=== PATIENT | female | born 1930 | race Caucasian/White ===

== ENCOUNTER 2018-02-01 17:39 | Inpatient (IN) | payer MEDICARE, MEDICAID ==
[2018-02-01 18:53] LABS: Troponin I 0.029 ng/mL (< 0.028)
[2018-02-01 20:58] LABS: Bilirubin Moderate (Negative); Blood, Urine Negative (Negative); Clarity CLEAR (Clear); Glucose, Urine (Dipstick) Negative (Negative); Leukocyte Trace (Negative); Nitrite Negative (Negative); Protein, Urine (Dipstick) 30 mg/dL (Neg-Trace); Specific Gravity, Urine 1.026 (1.002-1.036)
[2018-02-01 21:00] LABS: Bacteria/HPF None Seen HPF (None Seen); Hyaline Casts/LPF 7-10 HYALINE CAST LPF (0-3 Hyaline)
[2018-02-01] MEDS ORDERED: Acetaminophen 325 MG TAB PO PRN (21:03)
[2018-02-01] MEDS ORDERED: Ondansetron HCl/PF 4 MG/2 ML Vial IVP PRN (21:03)
[2018-02-01] MEDS ORDERED: Levothyroxine Sodium 100 MCG TAB PO SCH (22:00)
[2018-02-01 22:07] LABS: Troponin I 0.032 ng/mL (< 0.028)
[2018-02-02] MEDS: Sodium Chloride 0.9% 1,000 ML IV SCH ×2 (00:17→00:39)
[2018-02-02 01:07] LABS: Troponin I 0.032 ng/mL (< 0.028)
[2018-02-02 05:28] LABS: Anion Gap 13 mmol/L (10-20); BUN (Urea Nitrogen) 24 mg/dL (9.8-20.1); Calc. Creatinine Clearance 31 mL/min (70-130); Carbon Dioxide 24 mmol/L (23-31); Chloride 106 mmol/L (98-107); Estimated GFR-MDRD 42; Potassium 3.1 mmol/L (3.5-5.1); Sodium 140 mmol/L (136-145)
[2018-02-02 05:29] LABS: Calcium 9.2 mg/dL (7.8-10.44); Glucose 69 mg/dL (83-110)
[2018-02-02 05:50] LABS: Band 3 % (5-11); Eosinophils 1 % (0-10); Hemoglobin 11.5 g/dL (12.0-16.0); Lymphocytes 54 % (21-51); MDiff Complete? YES; Mean Corpuscular HGB CONC 34.2 g/dL (32.0-36.0); Mean Corpuscular Hemoglobin 31.1 pg (27.0-31.0); Mean Platelet Volume 7.9 fL (7.4-10.4); Monocytes 3 % (0-10); Neutrophil 37 % (42-75); Platelet Count 153 thou/uL (130-400); RBC Distribution Width 13.5 % (11.5-14.5); Reactive Lymphocytes 2 % (0-10); Red Blood Cell (RBC) Count 3.68 mill/uL (4.20-5.40); White Blood Cell (WBC) Count 4.6 thou/uL (4.8-10.8)
[2018-02-02] MEDS ORDERED: Levothyroxine 150 MCG TAB PO SCH ×2 (06:00→07:13)
[2018-02-02 06:02] VITALS: BMI 20.2
[2018-02-02] MEDS ORDERED: Nitroglycerin 0.4 MG TAB (25 Tab Bottle) SL PRN (07:12)
[2018-02-02] MEDS ORDERED: Eucerin (Mineral Oil/Petrolatum,White) 30 gm Jar TOP PRN (07:12)
[2018-02-02] MEDS ORDERED: hydrALAZINE 20 MG/ML VIAL SLOW IVP PRN (07:12)
[2018-02-02] MEDS ORDERED: Bisacodyl 10 MG SUPP PR PRN (07:12)
[2018-02-02] MEDS ORDERED: Senokot 8.6 MG TAB PO PRN (07:12)
[2018-02-02] MEDS ORDERED: Milk Of Magnesia 30 ML UDCUP PO PRN (07:12)
[2018-02-02] MEDS ORDERED: Chloraseptic Spray 180 ml Bottle PO PRN (07:12)
[2018-02-02] MEDS ORDERED: Loperamide HCl 2 MG CAP PO PRN (07:12)
[2018-02-02] MEDS ORDERED: Loratadine 10 MG TAB PO PRN (07:12)
[2018-02-02] MEDS ORDERED: Artificial Tears 18 DROP/0.9 ML EA EYE PRN (07:12)
[2018-02-02] MEDS ORDERED: Famotidine 20 MG TAB PO PRN ×2 (07:12→12:45)
[2018-02-02] MEDS ORDERED: Diabetic Tussin 200 MG/10 ML UDCUP PO PRN (07:12)
[2018-02-02] MEDS ORDERED: Sodium Chloride 0.65% Nasal 44 ML BOT EA NARE PRN (07:12)
[2018-02-02] MEDS ORDERED: Calcium Carbonate 500 MG ChewTAB PO PRN (07:12)
[2018-02-02] MEDS ORDERED: Ondansetron ODT 4 MG TAB PO PRN (07:12)
--- NOTE | 2018-02-02 07:35 | HP ---
PRIMARY CARE PHYSICIAN: Lana Fierro M.D. CODE STATUS: FULL CODE. TIME OF EVALUATION: 8:00 p.m. CHIEF COMPLAINT: Altered mental status. HISTORY OF PRESENT ILLNESS: This is an 87 years old female patient with past medical history of ilda ntia, brought to the hospital by friends because the patient was found to have change in mental statu s, the patient had been confused, the friend that is with the patient reported the patient does not h ave family members and she lives alone, and that she has been confused in the past few days, the [facility] has a visiting nurse and there was some issue that the patient was calling 911, reporting that th e visiting nurse was trying to kill her and still her things at home, so seems that the nursing group decided not to visit the patient anymore since then, the patient has been alone. The patient is con fused during the interview. Unable to give full history; however, she is in no distress, asymptomati c. No clear triggers. No alleviating factors. The patient was also reportedly having some episodes of bradycardia during my examination, heart rate was 40s and 50s. Unclear if the patient is taking her medications in the right way. REVIEW OF SYSTEMS: Unable to obtain as the patient is noncooperative to our interview. PAST MEDICAL HISTORY: CHF, lower abdomen aneurysm, COPD, coronary artery disease, hyperlipidemia, hi gh cholesterol, hypothyroidism. PAST SURGICAL HISTORY: The patient reported having CABG of 3 vessels. PSYCHIATRIC HISTORY: No previous psychiatric history. SOCIAL HISTORY: No drug use, quit smoking more than 10 years ago. KNOWN ALLERGIES: CODEINE SULFATE. REPORTED MEDICATIONS: The patient takes Bystolic and levothyroxine. PHYSICAL EXAMINATION: VITAL SIGNS: On presentation, blood pressure 161/73 with heart rate 49, respiratory rate was 19, tem perature 97.7, oxygen saturation 93 on room air. GENERAL APPEARANCE: The patient is alert, disoriented, not in any acute distress. HEENT: Eyes: Normal conjunctivae. Moist oral mucosa. Anicteric. NECK: No JVD. RESPIRATORY: Bilateral air entry. No rales, no wheezing. Symmetric expansion. CARDIOVASCULAR: Bradycardia, regular rhythm. No murmurs, no gallop, no edema. ABDOMEN: Soft, normal bowel sounds. MUSCULOSKELETAL: Baseline range of motion and strength. No tenderness. SKIN: Warm and intact. No pallor, no rash. Peripheral pulses are present. Capillary refill seems to be intact. NEUROLOGIC: The patient is disoriented. No evidence of any new focal weakness. Baseline speech. C ranial nerves seem to be intact. PSYCHIATRIC: The patient is disoriented. No changes in mood. EKG was reviewed. The patient had sinus bradycardia with rate of 49 with ID [id number], QRS 98, QT correcte d 451. Chest x-ray not done. LABORATORY DATA: White count 5.2, hemoglobin 11.7, MCV 89.3, platelet count 148. Chemistry: Sodium 142, potassium 3.5, chloride 105, carbon dioxide 24, anion gap 17, BUN 29, creatinine 1.81 and previ ous admission was for 1.55, glucose 176, total bilirubin 1.3. Beta natriuretic peptide 202. Troponi n 0.032 the first one was about the same level. ASSESSMENT AND PLAN: The patient will be placed in the hospital with following medical problems. 1. patient is alone, who seems to have dementia, unable to know the patient has been taking me dications or taking overdose of medications, patient presented with bradycardia, was taken Bystolic, will need piano case maker involvement to assist the patient for discharge planning, and further evaluati on of safety at home. 2. Sinus bradycardia, unclear etiology, could be related to the patient taking Bystolic, is no t clear at this point. 3. Mildly elevated troponin range of 0.032. Unclear etiology, the patient has also chronic kidney d isease, could be related to it. We will consult Cardiology for further workup and planning. 4. Hypothyroidism. TSH 68, this could be another reason, noncompliant due to possible patient's und erlying dementia, we will restart levothyroxine. 5. History of congestive heart failure, this is chronic, seems to stable, we will monitor, we will t reat accordingly. No home medication list yet. 6. Hyperlipidemia, low cholesterol diet is advised, reconcile home medications once available. 7. Deep venous thrombosis prophylaxis.
[2018-02-02] MEDS ORDERED: Prevnar 13-Val Conj/PF 0.5 ML SYRINGE IM ONE (09:00)
[2018-02-02 09:37] LABS: Cardiac Risk 5.7 (Less than 4.5)
[2018-02-02 09:57] LABS: Free T4 (Free Thyroxine) 0.75 ng/dL (0.70-1.48)
[2018-02-02 10:12] LABS: Folate (Folic Acid) 7.7 ng/mL (7.0-31.4)
[2018-02-02] MEDS: NS 0.9% w/ 20 MEQ KCL 1,000 ML/1,000 ML BAG IV SCH ×3 (10:13→20:46)
[2018-02-02] MEDS: Potassium Chloride 20 MEQ TAB PO SCH ×2 (10:14→17:21)
[2018-02-02] MEDS: Aspirin 325 MG TAB PO SCH ×2 (10:14→17:20)
[2018-02-02] MEDS: Enoxaparin Sodium 40 MG/0.4 ML SYRINGE SC SCH ×2 (10:14→17:21)
[2018-02-02] MEDS: cefTRIAXone\\ROCEPHIN 1 GM in Sodium Chloride 0.9% 100 ML IVPB SCH ×2 (10:14→17:19)
--- NOTE | 2018-02-02 10:50 | CON ---
DATE OF CONSULTATION: 02/02/2018 REASON FOR CONSULTATION: Bradycardia. HISTORY OF PRESENT ILLNESS: Ms. Gale is an 87-year-old woman, who was brought to the emergency ro om with confusion, disorientation, and also found to be bradycardic. The patient does not have chest pain or pressure now, but does have some confusion. The chart states there is a visiting nurse came to try to visit her, but the patient called 911, but the nurse was trying to kill her. The patient was confused and disoriented. REVIEW OF SYSTEMS: Not reliable, the patient is confused. PAST MEDICAL HISTORY: COPD, coronary artery disease, hypercholesterolemia, and hypothyroidism. PAST SURGICAL HISTORY: Previous bypass surgery. PSYCHIATRIC HISTORY: Dementia. SOCIAL HISTORY: No drugs. Quit smoking over 10 years ago. ALLERGIES: CODEINE and SULFATE. MEDICATION: 1. Bystolic 2.5 mg a day. 2. Lisinopril/hydrochlorothiazide 20/25 3. Tirosint thyroid. 4. Aspirin 81 mg a day. 5. Amlodipine 10 mg a day. It is unknown whether she is taking these medicines at home, she refuses medicines here. 6. History of statin intolerance. 7. Intolerant to Zetia as well. PHYSICAL EXAMINATION: GENERAL: On examination, it is a pleasant elderly woman who is awake. She answers questions, but st ates she wants to . She has no chest pain or pressure. VITAL SIGNS: Blood pressure 140/80, pulse 50, it is sinus on the monitor. HEENT: Eyes: Sclerae nonicteric. Mouth, mucous membranes moist. NECK: Supple, no lymphadenopathy. LUNGS: Clear, no wheezing. CARDIAC: She is bradycardic. I do not hear a murmur, rub, or gallop. ABDOMEN: Soft, nontender. EXTREMITIES: Warm and dry. No clubbing, cyanosis, or edema. PERTINENT LABORATORY FINDINGS: The EKG shows sinus bradycardia. The potassium is 3.1. Cholesterol is 328, triglyceride 166. LDL cholesterol is 237. TSH 68.67. ASSESSMENT: 1. Confusion and disorientation. Suspect related to hypothyroidism with some underlying dementia. 2. Refusing all medicines. 3. Some paranoid ideation. 4. Sinus bradycardia, likely at least largely related to hypothyroidism. 5. Previous bypass surgery. 6. Hypercholesterolemia with statin intolerance. PLAN: 1. If possible, we will give her thyroid ? intravenous if she will not take oral. 2. She is off all beta blockers. 3. No other recommendations at this point.
--- NOTE | 2018-02-02 12:29 | PDOC.PN ---
- Subjective Encounter Start Date: 02/02/18 Encounter Start Time: 08:45 -: old records requested/rev pt is delusional, refusing to take medication, pt is not able to take care of herself at home as per her friend - Objective Resuscitation Status: Resuscitation Status FULL:Full Resuscitation MAR Reviewed: Yes Vital Signs & Weight: Vital Signs (12 hours) Temp Pulse Resp BP Pulse Ox 02/02/18 07:26 97.6 F 50 L 20 140/80 96 02/02/18 04:00 96.4 F L 46 L 17 143/79 H Weight Weight 128 lb 14.4 oz Result Diagrams: 02/02/18 03:56 02/02/18 03:56 Radiology Reviewed by me: Yes EKG Reviewed by me: Yes (bradycardia) Phys Exam - Physical Examination Constitutional: NAD HEENT: PERRLA, moist MMs, sclera anicteric Neck: no JVD, supple Respiratory: no wheezing, no rales, no rhonchi Cardiovascular: RRR, no significant murmur, no rub Gastrointestinal: soft, non-tender, no distention, positive bowel sounds Musculoskeletal: no edema, pulses present Neurological: non-focal, normal sensation, moves all 4 limbs Lymphatic: no nodes Deviation from normal: delusional Skin: no rash, normal turgor Dx/Plan (1) Elevated troponin Code(s): R74.8 - ABNORMAL LEVELS OF OTHER SERUM ENZYMES Status: Acute (2) Dyslipidemia Code(s): E78.5 - HYPERLIPIDEMIA, UNSPECIFIED Status: Acute (3) Hypokalemia Code(s): E87.6 - HYPOKALEMIA Status: Acute (4) Hypothyroidism Code(s): E03.9 - HYPOTHYROIDISM, UNSPECIFIED Status: Acute (5) Sinus bradycardia Code(s): R00.1 - BRADYCARDIA, UNSPECIFIED Status: Acute (6) UTI (urinary tract infection) Status: Acute (7) Anemia, normocytic normochromic Code(s): D64.9 - ANEMIA, UNSPECIFIED Status: Chronic (8) CKD (chronic kidney disease) stage 3, GFR 30-59 ml/min Code(s): N18.3 - CHRONIC KIDNEY DISEASE, STAGE 3 (MODERATE) Status: Chronic (9) Dementia of Alzheimer's type with behavioral disturbance Code(s): G30.9 - ALZHEIMER'S DISEASE, UNSPECIFIED; F02.81 - DEMENTIA IN OTH DISEASES CLASSD ELSWHR W BEHAVIORAL DISTURB Status: Chronic - Plan cont current plan of care, plan discussed w/ family, PT/OT, health social work professor * start crestor * increase synthroid 200 mcg daily * add seroquel 25 mg po hs * add aricept 5 mg po daily * consult palliative care for goal of care * she will need placement * continue empiric rocephin. * follow culture * start PT * replace potassium * continue gentle IVF * echo Review of Systems - Review of Systems Other: not reliable due to her level of cognitive status - Medications/Allergies Allergies/Adverse Reactions: Allergies Allergy/AdvReac Type Severity Reaction Status Date / Time codeine Allergy Verified 02/02/18 05:48 Medications: Current Medications Acetaminophen (Tylenol) 650 mg PO Q4H PRN PRN Reason: Headache/Fever or Pain Artificial Tears (Tears Naturale) 0 drop EA EYE PRN PRN PRN Reason: Dry Eyes Aspirin (Aspirin) 325 mg PO DAILY [facility] Last Admin: 02/02/18 10:14 Dose: Not Given Bisacodyl (Dulcolax) 10 mg [place] DAILYPRN PRN PRN Reason: Constipation Calcium Carbonate (Tums) 1,000 mg PO Q4H PRN PRN Reason: Heartburn or Indigestion Donepezil HCl (Aricept) 5 mg PO HS [facility] Enoxaparin Sodium (Lovenox) 40 mg SC 0900 [facility] Last Admin: 02/02/18 10:14 Dose: Not Given Famotidine (Pepcid) 20 mg PO BIDPRN PRN PRN Reason: Heartburn or Indigestion Guaifenesin (Robitussin Sf) 200 mg PO Q4H PRN PRN Reason: Cough Hydralazine HCl (Apresoline) 10 mg SLOW IVP Q4H PRN PRN Reason: Systolic BP > 180 Potassium Chloride/Sodium Chloride (Ns 0.9% W/ 20 Meq Kcl) 1,000 ml in 1,000 mls @ 75 mls/hr IV .[id number] [facility] Last Admin: 02/02/18 10:13 Dose: Not Given Ceftriaxone Sodium 1 gm/ (Sodium Chloride) 100 mls @ 200 mls/hr IVPB 0800 [facility] Last Admin: 02/02/18 10:14 Dose: Not Given Levothyroxine Sodium (Synthroid) 200 mcg PO 0600 [facility] Loperamide HCl (Imodium) 2 mg PO PRN PRN PRN Reason: Diarrhea/Loose Stools Loratadine (Claritin) 10 mg PO DAILYPRN PRN PRN Reason: Sinus Symptoms Magnesium Hydroxide (Milk Of Magnesium) 30 ml PO DAILYPRN PRN PRN Reason: Constipation Mineral Oil/White Petrolatum (Eucerin Cream) 0 gm TOP BIDPRN PRN PRN Reason: Dry Skin Nitroglycerin (Nitrostat) 0.4 mg SL Q5MIN PRN PRN Reason: Chest Pain Ondansetron HCl (Zofran) 4 mg IVP Q6H PRN PRN Reason: Nausea/Vomiting Ondansetron HCl (Zofran Odt) 4 mg PO Q6H PRN PRN Reason: Nausea/Vomiting Phenol (Chloraseptic [place] 180 Ml Bot) 0 ml PO PRN PRN PRN Reason: Sore Throat Quetiapine Fumarate (Seroquel) 25 mg PO DAILY [facility] Rosuvastatin Calcium (Crestor) 20 mg PO HS [facility] Senna (Senokot) 2 tab PO HSPRN PRN PRN Reason: Constipation Sodium Chloride ([place] Nasal [place] 0.65%) 0 ml EA NARE QIDPRN PRN PRN Reason: Nasal Congestion
[2018-02-02] MEDS: Rosuvastatin 20 MG TAB PO SCH (20:46)
[2018-02-02] MEDS: Donepezil HCl 5 MG TAB PO SCH (20:46)
[2018-02-03] MEDS: NS 0.9% w/ 20 MEQ KCL 1,000 ML/1,000 ML BAG IV SCH (05:48)
[2018-02-03] MEDS ORDERED: Levothyroxine Sodium 100 MCG TAB PO SCH (06:00)
[2018-02-03 07:03] LABS: #Eosinphils 0.2 thou/uL (0.0-0.7); #Lymphocytes 2.5 thou/uL (1.20-3.40); #Monocytes 0.2 thou/uL (0.11-0.59); #Neutrophils 2.7 thou/uL (1.40-6.50); %Basophils 0.5 % (0.0-1.0); %Eosinophils 3.3 % (0.0-10.0); %Lymphocytes 44.2 % (21.0-51.0); %Neutrophils 48.1 % (42.0-75.0); Hemoglobin 14.1 g/dL (12.0-16.0); Mean Corpuscular Hemoglobin 30.7 pg (27.0-31.0); Mean Corpuscular Volume 90.4 fL (78.0-98.0); Mean Platelet Volume 7.4 fL (7.4-10.4); Platelet Count 144 thou/uL (130-400); RBC Distribution Width 13.5 % (11.5-14.5); Red Blood Cell (RBC) Count 4.58 mill/uL (4.20-5.40); White Blood Cell (WBC) Count 5.5 thou/uL (4.8-10.8)
[2018-02-03 07:20] LABS: ALT (SGPT) 7 U/L (8-55); AST (SGOT) 18 U/L (5-34); Albumin 3.9 g/dL (3.4-4.8); Alkaline Phosphatase 37 U/L (40-150); Anion Gap 12 mmol/L (10-20); BUN (Urea Nitrogen) 17 mg/dL (9.8-20.1); Bilirubin, Total 0.8 mg/dL (0.2-1.2); Calc. Creatinine Clearance 32 mL/min (70-130); Calcium 9.2 mg/dL (7.8-10.44); Carbon Dioxide 20 mmol/L (23-31); Chloride 106 mmol/L (98-107); Estimated GFR-MDRD 46; Globulin 2.5 g/dL (2.4-3.5); Glucose 89 mg/dL (83-110); Potassium 3.4 mmol/L (3.5-5.1); Protein, Total 6.4 g/dL (6.0-8.3); Sodium 135 mmol/L (136-145)
[2018-02-03] MEDS ORDERED: Potassium Chloride 20 MEQ TAB PO SCH (08:45)
[2018-02-03] MEDS ORDERED: Lisinopril 5 MG TAB PO SCH (09:00)
--- NOTE | 2018-02-03 09:05 | PRG ---
DATE OF SERVICE: 02/03/2018 SUBJECTIVE: Ms. Gale is more alert today. She says she wants to go home. She seems to be thinki ng somewhat more clearly, but still not completely rational. PHYSICAL EXAMINATION: VITAL SIGNS: Blood pressure 165/89, pulse 65 regular. LUNGS: Clear. CARDIAC: Normal S1 and S2. ABDOMEN: Soft, nontender. EXTREMITIES: There is no edema. LABORATORY: Reviewing the laboratory again, her TSH was 68.6. I suspect she was not taking her thyr oid medicine. ASSESSMENT: 1. Sinus bradycardia, resolved, off beta blockers and back on thyroid. She did take her dose of thy roid today. 2. Suspect she was not taking any thyroid medicine. 3. Coronary artery disease. 4. Statin intolerant. PLAN: 1. I would recommend reducing the thyroid medicine as I suspect she was not taking it at all. 2. Resume amlodipine. 3. Increase lisinopril to previous dose. 4. Okay with me to go off telemetry. She will need some type of placement.
[2018-02-03] MEDS: Amlodipine 10 MG TAB PO SCH (10:19)
[2018-02-03] MEDS: Aspirin 325 MG TAB PO SCH (10:19)
[2018-02-03] MEDS: Enoxaparin Sodium 40 MG/0.4 ML SYRINGE SC SCH (10:19)
[2018-02-03] MEDS: cefTRIAXone\\ROCEPHIN 1 GM in Sodium Chloride 0.9% 100 ML IVPB SCH (10:20)
--- NOTE | 2018-02-03 12:21 | PDOC.PN ---
- Subjective Encounter Start Date: 02/03/18 Encounter Start Time: 07:30 Patient seen and examined. No new complaints. No overnight events - Objective Resuscitation Status: Resuscitation Status FULL:Full Resuscitation MAR Reviewed: Yes Vital Signs & Weight: Vital Signs (12 hours) Temp Pulse Resp BP BP Pulse Ox 02/03/18 08:28 97.8 F 65 18 165/89 H 91 L 02/03/18 08:00 97.8 F 65 18 02/03/18 04:17 98.2 F 55 L 16 170/95 H 96 Weight Weight 122 lb 14.4 oz I&O: 02/02/18 02/03/18 02/04/18 06:59 06:59 06:59 Intake Total 1580 Output Total 700 Balance 880 Result Diagrams: 02/03/18 06:52 02/03/18 06:52 EKG Reviewed by me: Yes (nsr) Phys Exam - Physical Examination Constitutional: NAD HEENT: PERRLA, moist MMs, sclera anicteric Neck: no JVD, supple Respiratory: no wheezing, no rales, no rhonchi Cardiovascular: RRR, no significant murmur, no rub Gastrointestinal: soft, non-tender, no distention, positive bowel sounds Musculoskeletal: no edema, pulses present Neurological: non-focal, normal sensation, moves all 4 limbs Lymphatic: no nodes Psychiatric: normal affect, A&O x 3 Skin: no rash, normal turgor Dx/Plan (1) Elevated troponin Code(s): R74.8 - ABNORMAL LEVELS OF OTHER SERUM ENZYMES Status: Acute (2) Dyslipidemia Code(s): E78.5 - HYPERLIPIDEMIA, UNSPECIFIED Status: Acute (3) Hypokalemia Code(s): E87.6 - HYPOKALEMIA Status: Acute (4) Hypothyroidism Code(s): E03.9 - HYPOTHYROIDISM, UNSPECIFIED Status: Acute (5) Sinus bradycardia Code(s): R00.1 - BRADYCARDIA, UNSPECIFIED Status: Acute (6) UTI (urinary tract infection) Status: Acute (7) Anemia, normocytic normochromic Code(s): D64.9 - ANEMIA, UNSPECIFIED Status: Chronic (8) CKD (chronic kidney disease) stage 3, GFR 30-59 ml/min Code(s): N18.3 - CHRONIC KIDNEY DISEASE, STAGE 3 (MODERATE) Status: Chronic (9) Dementia of Alzheimer's type with behavioral disturbance Code(s): G30.9 - ALZHEIMER'S DISEASE, UNSPECIFIED; F02.81 - DEMENTIA IN OTH DISEASES CLASSD ELSWHR W BEHAVIORAL DISTURB Status: Chronic (10) Hypertension Code(s): I10 - ESSENTIAL (PRIMARY) HYPERTENSION Status: Acute - Plan cont current plan of care, continue antibiotics, PT/OT, social research assistant * for hypertension, will add amlodipine 10 mg po daily, lisinopril 10 mg po daily * DC tele * transfer to medical * continue PT/OT * case consultant for her placement * medication reviewed as below * symptomatic treatment. Review of Systems - Review of Systems Eyes: negative: Pain, Vision Change, Conjunctivae Inflammation, Eyelid Inflammation, Redness, Other ENT: negative: Ear Pain, Ear Discharge, Nose Pain, Nose Discharge, Nose Congestion, Mouth Pain, Mouth Swelling, Throat Pain, Throat Swelling, Other Respiratory: negative: Cough, Dry, Shortness of Breath, Hemoptysis, SOB with Excertion, Pleuritic Pain, Sputum, Wheezing Cardiovascular: negative: chest pain, palpitations, orthopnea, paroxysmal nocturnal dyspnea, edema, light headedness, other Gastrointestinal: negative: Nausea, Vomiting, Abdominal Pain, Diarrhea, Constipation, Melena, Hematochezia, Other Genitourinary: negative: Dysuria, Frequency, Incontinence, Hematuria, Retention , Other Musculoskeletal: negative: Neck Pain, Shoulder Pain, Arm Pain, Back Pain, Hand Pain, Leg Pain, Foot Pain, Other Skin: negative: Rash, Lesions, Zbigniew, Bruising, Other - Medications/Allergies Allergies/Adverse Reactions: Allergies Allergy/AdvReac Type Severity Reaction Status Date / Time codeine Allergy Verified 02/02/18 05:48 Medications: Current Medications Acetaminophen (Tylenol) 650 mg PO Q4H PRN PRN Reason: Headache/Fever or Pain Amlodipine Besylate (Norvasc) 10 mg PO DAILY [facility] Last Admin: 02/03/18 10:19 Dose: 10 mg Artificial Tears (Tears Naturale) 0 drop EA EYE PRN PRN PRN Reason: Dry Eyes Aspirin (Aspirin) 325 mg PO DAILY [facility] Last Admin: 02/03/18 10:19 Dose: 325 mg Bisacodyl (Dulcolax) 10 mg [place] DAILYPRN PRN PRN Reason: Constipation Calcium Carbonate (Tums) 1,000 mg PO Q4H PRN PRN Reason: Heartburn or Indigestion Donepezil HCl (Aricept) 5 mg PO HS [facility] Last Admin: 02/02/18 20:46 Dose: 5 mg Enoxaparin Sodium (Lovenox) 40 mg SC 0900 [facility] Last Admin: 02/03/18 10:19 Dose: 40 mg Famotidine (Pepcid) 20 mg PO DAILYPRN PRN PRN Reason: Heartburn or Indigestion Guaifenesin (Robitussin Sf) 200 mg PO Q4H PRN PRN Reason: Cough Hydralazine HCl (Apresoline) 10 mg SLOW IVP Q4H PRN PRN Reason: Systolic BP > 180 Ceftriaxone Sodium 1 gm/ (Sodium Chloride) 100 mls @ 200 mls/hr IVPB 0800 [facility] Last Admin: 02/03/18 10:20 Dose: 100 mls Levothyroxine Sodium (Synthroid) 125 mcg PO 0600 [facility] Lisinopril (Zestril) 10 mg PO DAILY [facility] Loperamide HCl (Imodium) 2 mg PO PRN PRN PRN Reason: Diarrhea/Loose Stools Loratadine (Claritin) 10 mg PO DAILYPRN PRN PRN Reason: Sinus Symptoms Magnesium Hydroxide (Milk Of Magnesium) 30 ml PO DAILYPRN PRN PRN Reason: Constipation Mineral Oil/White Petrolatum (Eucerin Cream) 0 gm TOP BIDPRN PRN PRN Reason: Dry Skin Nitroglycerin (Nitrostat) 0.4 mg SL Q5MIN PRN PRN Reason: Chest Pain Ondansetron HCl (Zofran) 4 mg IVP Q6H PRN PRN Reason: Nausea/Vomiting Ondansetron HCl (Zofran Odt) 4 mg PO Q6H PRN PRN Reason: Nausea/Vomiting Phenol (Chloraseptic [place] 180 Ml Bot) 0 ml PO PRN PRN PRN Reason: Sore Throat Quetiapine Fumarate (Seroquel) 25 mg PO DAILY [facility] Last Admin: 02/03/18 10:19 Dose: 25 mg Rosuvastatin Calcium (Crestor) 20 mg PO HS [facility] Last Admin: 02/02/18 20:46 Dose: 20 mg Senna (Senokot) 2 tab PO HSPRN PRN PRN Reason: Constipation Sodium Chloride ([place] Nasal [place] 0.65%) 0 ml EA NARE QIDPRN PRN PRN Reason: Nasal Congestion
[2018-02-03] MEDS: Rosuvastatin 20 MG TAB PO SCH (20:23)
[2018-02-03] MEDS: Donepezil HCl 5 MG TAB PO SCH (20:23)
[2018-02-04] MEDS: Levothyroxine Sodium 125 MCG TAB PO SCH (05:28)
[2018-02-04] MEDS: cefTRIAXone\\ROCEPHIN 1 GM in Sodium Chloride 0.9% 100 ML IVPB SCH ×2 (08:24)
[2018-02-04] MEDS: Enoxaparin Sodium 40 MG/0.4 ML SYRINGE SC SCH (08:24)
[2018-02-04] MEDS: Aspirin 325 MG TAB PO SCH (08:24)
[2018-02-04] MEDS: Lisinopril 5 MG TAB PO SCH (08:27)
[2018-02-04] MEDS: Amlodipine 10 MG TAB PO SCH (08:27)
--- NOTE | 2018-02-04 12:29 | PDOC.PN ---
- Subjective Encounter Start Date: 02/04/18 Encounter Start Time: 09:20 Patient seen and examined. No new complaints. No overnight events - Objective Resuscitation Status: Resuscitation Status FULL:Full Resuscitation MAR Reviewed: Yes Vital Signs & Weight: Vital Signs (12 hours) Temp Pulse Resp BP BP BP Pulse Ox 02/04/18 08:32 98 F 55 L 16 155/75 H 93 L 02/04/18 08:27 98 F 55 L 16 155/75 H 93 L 02/04/18 05:00 97.4 F L 55 L 16 166/76 H 93 L Weight Weight 125 lb 4.8 oz I&O: 02/03/18 02/04/18 02/05/18 06:59 06:59 06:59 Intake Total 1580 85 Output Total 700 700 Balance 880 -615 Result Diagrams: 02/03/18 06:52 02/03/18 06:52 Phys Exam - Physical Examination Constitutional: NAD HEENT: PERRLA, moist MMs, sclera anicteric Neck: no JVD, supple Respiratory: no wheezing, no rales, no rhonchi Cardiovascular: RRR, no significant murmur, no rub Gastrointestinal: soft, non-tender, no distention, positive bowel sounds Musculoskeletal: no edema, pulses present Neurological: non-focal, normal sensation, moves all 4 limbs Lymphatic: no nodes Psychiatric: normal affect Skin: no rash, normal turgor Dx/Plan (1) Elevated troponin Code(s): R74.8 - ABNORMAL LEVELS OF OTHER SERUM ENZYMES Status: Acute (2) Dyslipidemia Code(s): E78.5 - HYPERLIPIDEMIA, UNSPECIFIED Status: Acute (3) Hypokalemia Code(s): E87.6 - HYPOKALEMIA Status: Acute (4) Hypothyroidism Code(s): E03.9 - HYPOTHYROIDISM, UNSPECIFIED Status: Acute (5) Sinus bradycardia Code(s): R00.1 - BRADYCARDIA, UNSPECIFIED Status: Acute (6) UTI (urinary tract infection) Status: Acute (7) Anemia, normocytic normochromic Code(s): D64.9 - ANEMIA, UNSPECIFIED Status: Chronic (8) CKD (chronic kidney disease) stage 3, GFR 30-59 ml/min Code(s): N18.3 - CHRONIC KIDNEY DISEASE, STAGE 3 (MODERATE) Status: Chronic (9) Dementia of Alzheimer's type with behavioral disturbance Code(s): G30.9 - ALZHEIMER'S DISEASE, UNSPECIFIED; F02.81 - DEMENTIA IN OTH DISEASES CLASSD ELSWHR W BEHAVIORAL DISTURB Status: Chronic - Plan cont current plan of care, plan discussed w/ family, continue antibiotics, social work professor * pt is not safe for home discharge, she is not able to take care of herself * she needs placement * bottle caser working on it, * medication reviewed as below * symptomatic treatment. Review of Systems - Review of Systems ENT: negative: Ear Pain, Ear Discharge, Nose Pain, Nose Discharge, Nose Congestion, Mouth Pain, Mouth Swelling, Throat Pain, Throat Swelling, Other Respiratory: negative: Cough, Dry, Shortness of Breath, Hemoptysis, SOB with Excertion, Pleuritic Pain, Sputum, Wheezing Cardiovascular: negative: chest pain, palpitations, orthopnea, paroxysmal nocturnal dyspnea, edema, light headedness, other Gastrointestinal: negative: Nausea, Vomiting, Abdominal Pain, Diarrhea, Constipation, Melena, Hematochezia, Other Genitourinary: negative: Dysuria, Frequency, Incontinence, Hematuria, Retention , Other Musculoskeletal: negative: Neck Pain, Shoulder Pain, Arm Pain, Back Pain, Hand Pain, Leg Pain, Foot Pain, Other Skin: negative: Rash, Lesions, Zbigniew, Bruising, Other Other: not reliable due to her cognitive status - Medications/Allergies Allergies/Adverse Reactions: Allergies Allergy/AdvReac Type Severity Reaction Status Date / Time codeine Allergy Verified 02/02/18 05:48 Medications: Current Medications Acetaminophen (Tylenol) 650 mg PO Q4H PRN PRN Reason: Headache/Fever or Pain Amlodipine Besylate (Norvasc) 10 mg PO DAILY [facility] Last Admin: 02/04/18 08:27 Dose: 10 mg Artificial Tears (Tears Naturale) 0 drop EA EYE PRN PRN PRN Reason: Dry Eyes Aspirin (Aspirin) 325 mg PO DAILY [facility] Last Admin: 02/04/18 08:24 Dose: 325 mg Bisacodyl (Dulcolax) 10 mg [place] DAILYPRN PRN PRN Reason: Constipation Calcium Carbonate (Tums) 1,000 mg PO Q4H PRN PRN Reason: Heartburn or Indigestion Donepezil HCl (Aricept) 5 mg PO [facility] Last Admin: 08/21/18 20:23 Dose: 5 mg Enoxaparin Sodium (Lovenox) 40 mg SC 0900 [facility] Last Admin: 02/04/18 08:24 Dose: 40 mg Famotidine (Pepcid) 20 mg PO DAILYPRN PRN PRN Reason: Heartburn or Indigestion Guaifenesin (Robitussin Sf) 200 mg PO Q4H PRN PRN Reason: Cough Hydralazine HCl (Apresoline) 10 mg SLOW IVP Q4H PRN PRN Reason: Systolic BP > 180 Ceftriaxone Sodium 1 gm/ (Sodium Chloride) 100 mls @ 200 mls/hr IVPB 0800 [facility] Last Admin: 02/04/18 08:24 Dose: Not Given Levothyroxine Sodium (Synthroid) 125 mcg PO 0600 [facility] Last Admin: 02/04/18 05:28 Dose: 125 mcg Lisinopril (Zestril) 10 mg PO DAILY [facility] Last Admin: 02/04/18 08:27 Dose: 10 mg Loperamide HCl (Imodium) 2 mg PO PRN PRN PRN Reason: Diarrhea/Loose Stools Loratadine (Claritin) 10 mg PO DAILYPRN PRN PRN Reason: Sinus Symptoms Magnesium Hydroxide (Milk Of Magnesium) 30 ml PO DAILYPRN PRN PRN Reason: Constipation Mineral Oil/White Petrolatum (Eucerin Cream) 0 gm TOP BIDPRN PRN PRN Reason: Dry Skin Nitroglycerin (Nitrostat) 0.4 mg SL Q5MIN PRN PRN Reason: Chest Pain Ondansetron HCl (Zofran) 4 mg IVP Q6H PRN PRN Reason: Nausea/Vomiting Ondansetron HCl (Zofran Odt) 4 mg PO Q6H PRN PRN Reason: Nausea/Vomiting Phenol (Chloraseptic [place] 180 Ml Bot) 0 ml PO PRN PRN PRN Reason: Sore Throat Quetiapine Fumarate (Seroquel) 25 mg PO DAILY [facility] Last Admin: 02/04/18 08:24 Dose: 25 mg Rosuvastatin Calcium (Crestor) 20 mg PO HS [facility] Last Admin: 02/03/18 20:23 Dose: 20 mg Senna (Senokot) 2 tab PO HSPRN PRN PRN Reason: Constipation Sodium Chloride ([place] Nasal [place] 0.65%) 0 ml EA NARE QIDPRN PRN PRN Reason: Nasal Congestion
--- NOTE | 2018-02-04 16:03 | EKG ---
Test Reason : Blood Pressure : / mmHG Vent. Rate : 049 BPM Atrial Rate : 049 BPM P-R Int : 172 ms QRS Dur : 098 ms QT Int : 500 ms P-R-T Axes : 020 041 067 degrees QTc Int : 451 ms Sinus bradycardia Otherwise normal ECG Confirmed by PAULETTE PASCAL, JOHN ([id number]), manuscript editor SERGE GLYNN ([id number]) on 02/04/2018 4:02:47 PM Referred By: Confirmed By:JOHN CALDWELL MD
[2018-02-04] MEDS: Donepezil HCl 5 MG TAB PO SCH (20:37)
[2018-02-04] MEDS: Rosuvastatin 20 MG TAB PO SCH (20:37)
[2018-02-05] MEDS: Levothyroxine Sodium 125 MCG TAB PO SCH (05:41)
[2018-02-05] MEDS: Enoxaparin Sodium 40 MG/0.4 ML SYRINGE SC SCH ×2 (08:11→08:19)
[2018-02-05] MEDS: Aspirin 325 MG TAB PO SCH (08:11)
[2018-02-05] MEDS: cefTRIAXone\\ROCEPHIN 1 GM in Sodium Chloride 0.9% 100 ML IVPB SCH ×2 (08:12→08:18)
[2018-02-05] MEDS: Lisinopril 5 MG TAB PO SCH (09:14)
[2018-02-05] MEDS: Amlodipine 10 MG TAB PO SCH (09:14)
--- NOTE | 2018-02-05 10:23 | PDOC.PN ---
- Subjective Encounter Start Date: 02/05/18 Encounter Start Time: 09:25 Patient seen and examined. No new complaints. No overnight events - Objective Resuscitation Status: Resuscitation Status FULL:Full Resuscitation MAR Reviewed: Yes Vital Signs & Weight: Vital Signs (12 hours) Temp Pulse Resp BP BP Pulse Ox 02/05/18 08:00 62 93 L 02/05/18 07:52 98.1 F 56 L 14 127/63 90 L 02/05/18 04:27 97.3 F L 54 L 16 113/62 93 L 02/05/18 00:00 97.9 F 59 L 16 126/68 90 L Weight Weight 129 lb 4.8 oz I&O: 02/04/18 02/05/18 02/06/18 06:59 06:59 06:59 Intake Total 85 260 Output Total 700 Balance -615 260 Result Diagrams: 02/03/18 06:52 02/03/18 06:52 Radiology Reviewed by me: Yes (echo report is normal) Phys Exam - Physical Examination Constitutional: NAD HEENT: PERRLA, moist MMs, sclera anicteric Neck: no JVD, supple Respiratory: no wheezing, no rales, no rhonchi Cardiovascular: RRR, no significant murmur, no rub Gastrointestinal: soft, non-tender, no distention, positive bowel sounds Musculoskeletal: no edema, pulses present Neurological: non-focal, normal sensation, moves all 4 limbs Lymphatic: no nodes Psychiatric: normal affect, A&O x 3 Skin: no rash, normal turgor Dx/Plan (1) Elevated troponin Code(s): R74.8 - ABNORMAL LEVELS OF OTHER SERUM ENZYMES Status: Acute (2) Dyslipidemia Code(s): E78.5 - HYPERLIPIDEMIA, UNSPECIFIED Status: Acute (3) Hypokalemia Code(s): E87.6 - HYPOKALEMIA Status: Acute (4) Hypothyroidism Code(s): E03.9 - HYPOTHYROIDISM, UNSPECIFIED Status: Acute (5) Sinus bradycardia Code(s): R00.1 - BRADYCARDIA, UNSPECIFIED Status: Acute (6) UTI (urinary tract infection) Status: Acute (7) Anemia, normocytic normochromic Code(s): D64.9 - ANEMIA, UNSPECIFIED Status: Chronic (8) CKD (chronic kidney disease) stage 3, GFR 30-59 ml/min Code(s): N18.3 - CHRONIC KIDNEY DISEASE, STAGE 3 (MODERATE) Status: Chronic (9) Dementia of Alzheimer's type with behavioral disturbance Code(s): G30.9 - ALZHEIMER'S DISEASE, UNSPECIFIED; F02.81 - DEMENTIA IN OTH DISEASES CLASSD ELSWHR W BEHAVIORAL DISTURB Status: Chronic - Plan cont current plan of care, social work program coordinator * medication reviewed as below * symptomatic treatment * see my discharge pabloy. Review of Systems - Review of Systems Eyes: negative: Pain, Vision Change, Conjunctivae Inflammation, Eyelid Inflammation, Redness, Other ENT: negative: Ear Pain, Ear Discharge, Nose Pain, Nose Discharge, Nose Congestion, Mouth Pain, Mouth Swelling, Throat Pain, Throat Swelling, Other Respiratory: negative: Cough, Dry, Shortness of Breath, Hemoptysis, SOB with Excertion, Pleuritic Pain, Sputum, Wheezing Cardiovascular: negative: chest pain, palpitations, orthopnea, paroxysmal nocturnal dyspnea, edema, light headedness, other Gastrointestinal: negative: Nausea, Vomiting, Abdominal Pain, Diarrhea, Constipation, Melena, Hematochezia, Other Genitourinary: negative: Dysuria, Frequency, Incontinence, Hematuria, Retention , Other Musculoskeletal: negative: Neck Pain, Shoulder Pain, Arm Pain, Back Pain, Hand Pain, Leg Pain, Foot Pain, Other - Medications/Allergies Allergies/Adverse Reactions: Allergies Allergy/AdvReac Type Severity Reaction Status Date / Time codeine Allergy Verified 02/02/18 05:48 Medications: Current Medications Acetaminophen (Tylenol) 650 mg PO Q4H PRN PRN Reason: Headache/Fever or Pain Amlodipine Besylate (Norvasc) 10 mg PO DAILY [facility] Last Admin: 02/05/18 09:14 Dose: Not Given Artificial Tears (Tears Naturale) 0 drop EA EYE PRN PRN PRN Reason: Dry Eyes Aspirin (Aspirin) 325 mg PO DAILY [facility] Last Admin: 02/05/18 08:11 Dose: 325 mg Bisacodyl (Dulcolax) 10 mg LA DAILYPRN PRN PRN Reason: Constipation Calcium Carbonate (Tums) 1,000 mg PO Q4H PRN PRN Reason: Heartburn or Indigestion Donepezil HCl (Aricept) 5 mg PO HS [facility] Last Admin: 02/04/18 20:37 Dose: 5 mg Enoxaparin Sodium (Lovenox) 40 mg SC 0900 [facility] Last Admin: 02/05/18 08:19 Dose: Not Given Famotidine (Pepcid) 20 mg PO DAILYPRN PRN PRN Reason: Heartburn or Indigestion Guaifenesin (Robitussin Sf) 200 mg PO Q4H PRN PRN Reason: Cough Hydralazine HCl (Apresoline) 10 mg SLOW IVP Q4H PRN PRN Reason: Systolic BP > 180 Levothyroxine Sodium (Synthroid) 125 mcg PO 0600 [facility] Last Admin: 02/05/18 05:41 Dose: 125 mcg Lisinopril (Zestril) 10 mg PO DAILY [facility] Last Admin: 02/05/18 09:14 Dose: Not Given Loperamide HCl (Imodium) 2 mg PO PRN PRN PRN Reason: Diarrhea/Loose Stools Loratadine (Claritin) 10 mg PO DAILYPRN PRN PRN Reason: Sinus Symptoms Magnesium Hydroxide (Milk Of Magnesium) 30 ml PO DAILYPRN PRN PRN Reason: Constipation Mineral Oil/White Petrolatum (Eucerin Cream) 0 gm TOP BIDPRN PRN PRN Reason: Dry Skin Nitroglycerin (Nitrostat) 0.4 mg SL Q5MIN PRN PRN Reason: Chest Pain Ondansetron HCl (Zofran) 4 mg IVP Q6H PRN PRN Reason: Nausea/Vomiting Ondansetron HCl (Zofran Odt) 4 mg PO Q6H PRN PRN Reason: Nausea/Vomiting Phenol (Chloraseptic [place] 180 Ml Bot) 0 ml PO PRN PRN PRN Reason: Sore Throat Quetiapine Fumarate (Seroquel) 25 mg PO DAILY [facility] Last Admin: 02/05/18 08:19 Dose: Not Given Rosuvastatin Calcium (Crestor) 20 mg PO HS [facility] Last Admin: 02/04/18 20:37 Dose: 20 mg Senna (Senokot) 2 tab PO HSPRN PRN PRN Reason: Constipation Sodium Chloride (Lorain Nasal [place] 0.65%) 0 ml EA NARE QIDPRN PRN PRN Reason: Nasal Congestion
--- NOTE | 2018-02-05 11:53 | DIS ---
DATE OF ADMISSION: 02/01/2018 DATE OF DISCHARGE: 02/05/2018 PRIMARY CARE PHYSICIAN: Dr. Montes De Oca Head. DISCHARGE DISPOSITION: [facility]. PRIMARY DISCHARGE DIAGNOSES: Alzheimer's type of dementia with behavioral disturbance, delusional di sorder, asymptomatic urinary tract infection, elevated troponin due to demand ischemia, hypokalemia, corrected, new diagnosis of dyslipidemia, hypertension, uncontrolled hypothyroidism, sinus bradycardi a due to uncontrolled hypothyroidism, chronic kidney disease stage 3, anemia normocytic normochromic. PRIMARY PROCEDURE/OPERATION: None. RADIOLOGICAL INVESTIGATION: Echocardiography showed normal EF. SIGNIFICANT LABORATORY DATA: WBC 5.5, hemoglobin 14.1, platelet 144. Sodium 135, potassium 3.4, BUN 17, creatinine 1.12, calcium 9.2. LFT normal. LDL 237. Folate, B12 normal, TSH 68. Urinalysis mckeon ggestive of UTI. Urine culture negative. DISCHARGE MEDICATIONS: Levothyroxine 150 mcg p.o. daily, amlodipine 10 mg daily, aspirin 325 mg p.o. daily, Aricept 5 mg p.o. at bedtime, lisinopril 10 mg p.o. daily, Seroquel 25 mg p.o. daily and Avtar tor 20 mg p.o. at bedtime. CONTRAINDICATIONS: None. CODE STATUS: FULL CODE. INPATIENT OPERATIONAL METEOROLOGIST: Dr. Fierro was consulted for elevated troponin and sinus bradycardia. TEST RESULTS PENDING ON DISCHARGE: None. ALLERGIES: CODEINE. DISCHARGE PLAN: Post hospital, the patient is discharged to [facility]. Subsequently, patient will follow up with primary care physician. HOSPITAL COURSE: An 87-year-old female who was admitted by Dr. Landry on 02/02/2018. Please see h is H&P for further detail. The patient lives at home and she has acute worsening Alzheimer's type of dementia. She also has underlying delusional disorder. As per patient's surrounding neighbor, isis ent was not able to take care of herself. She was not managing her rent and she did not have bttn at her home. She was also not having functioning phone and she was not responding to phone at h ome. She was not taking any medication. She was confused and dilutional. She was not able to manag e herself at home and that is why she was brought to ER, she was admitted to telemetry floor because when she came to ER, her heart rate was in 40s, and she had a diagnosis of uncontrolled hypothyroidis m. While in hospital, we gave her IV fluid and her mild renal insufficiency corrected. She had hypo kalemia which was replaced. We did check lipid profile which was consistent with significantly abnor mal LDL and that is why we started Crestor. She had elevated troponin and sinus bradycardia that is why Cardiology was consulted and they recommended to treat conservatively and they recommended that t his was related to demand ischemia from bradycardia. She did not have any chest pain or any EKG gan ges of ischemia. We did echocardiography, which showed normal EF. Cardiology cleared her to transfe r to medical floor. At that point, we transferred her to medical floor. This patient also has new d iagnosis of hypertension and that is why we started amlodipine and lisinopril. We also continued her thyroid medication. Her all problem was related with that she was not taking medication at home. W susi in hospital, she was also having intermittent delusional disorder as well as she was refusing to take medications. While in hospital, we treated her asymptomatic UTI for 3 days of IV antibiotic th erapy. She remained afebrile while in hospital, hemodynamically stable. [facility] was also consulted and they cleared her to go to snf. At this point, I saw this patient today and she was in sound mind and she decided to be FULL CODE. I did mini mental status examination that was completely normal. Patient is not able to take care of herself at home and that is why she needs placement. Eventually, she will go home with some support at home. Cardiology cleared her for discharge. The patient is seen and examined at bedside today. PHYSICAL EXAMINATION: VITAL SIGNS: Currently, temperature 98.1, pulse 62, saturation 93% on room air, blood pressure 127/6 3, weight 129 pounds. GENERAL: The patient is currently alert, awake, no obvious acute distress. HEAD: Normocephalic, atraumatic. EYES: Pupils round, reactive to light. Extraocular muscle intact. ENT: Oropharynx within normal limits. Moist mucous membranes, no oral lesion, no pharyngeal erythem a, no exudate. NECK: Supple, no JVD, no thyromegaly, no carotid bruit. LUNGS: Clear to auscultation without any rhonchi or rales. CARDIAC: S1, S2 regular without any murmur. ABDOMEN: Soft and benign without any tenderness. EXTREMITIES: No edema. NEUROLOGIC: Nonfocal examination. Paperwork for discharge done. Discharge medication reconciliation done. I spoke with Dr. Mg yesterday and updated about patient's plan. This patient has intermittent delusional disorder. At that point, she is not able to make decision, but whenever she is in sound mind she is able to make perfect sense. Total time spent on discharge day 31 minutes.
[2018-02-05 16:51] VITALS: BP 116/69; TEMP 98.3
== END 2018-02-05 17:45 | DRG 311 ==
LOC: ERS 17:39 → 2NO 22:49 → T4-B 02-03 19:42
PROVIDERS: ADMIT Hospitalist; ATTEND Hospitalist
DX: I24.8 Other forms of acute ischemic heart disease (principal); N39.0 Urinary tract infection, site not specified; F02.81 Dementia in other diseases classified elsewhere, unspecified severity, with behavioral disturbance; F05 Delirium due to known physiological condition; I13.0 Hypertensive heart and chronic kidney disease with heart failure and stage 1 through stage 4 chronic kidney disease, or unspecified chronic kidney disease; G30.9 Alzheimer's disease, unspecified; R79.89 Other specified abnormal findings of blood chemistry; E87.6 Hypokalemia; E78.5 Hyperlipidemia, unspecified; E03.9 Hypothyroidism, unspecified; N18.3 Chronic kidney disease, stage 3 (moderate); D64.9 Anemia, unspecified; R00.1 Bradycardia, unspecified; Z79.82 Long term (current) use of aspirin; Z88.5 Allergy status to narcotic agent; J44.9 Chronic obstructive pulmonary disease, unspecified; I25.10 Atherosclerotic heart disease of native coronary artery without angina pectoris; E78.00 Pure hypercholesterolemia, unspecified; Z95.1 Presence of aortocoronary bypass graft; Z88.2 Allergy status to sulfonamides; Z87.891 Personal history of nicotine dependence; I50.9 Heart failure, unspecified
CPT/HCPCS: 36415; 80048; 80053; 80061; 81003; 81015; 82607; 82746; 84439; 84443; 84481; 84484; 85025; 87086; 90471; 90670; 93005; 93306; 94760; G0009; G8978-GP-CK; G8979-GP-CJ; G8987-GO-CI; G8988-GO-CI; G8989-GO-CI; J0696; J1650; J7050